=== PATIENT | female | born 1960 | race Caucasian/White ===

== ENCOUNTER 2020-07-16 02:05 | Emergency (ER) | payer MEDICAID ==
[~2020-07-16] VITALS: Ht 157.5 cm; Wt 96.6 kg
[2020-07-16 02:41] VITALS: BP 141/60
[2020-07-16] MEDS ORDERED: PENI500T2 PO (02:51)
[2020-07-16] MEDS ORDERED: HYDR-3972 PO (02:51)
[2020-07-16] MEDS ORDERED: penicillin V potassium 500mg tablet PO ONE (02:55)
[2020-07-16] MEDS ORDERED: HYDROcodone/acetaminophen 10/325mg tab PO ONE (02:55)
== END 2020-07-16 03:56 | disposition home or self-care (01) ==
LOC: ER 02:06
DX: S02.5XXA Fracture of tooth (traumatic), initial encounter for closed fracture (principal); R51.9 Headache, unspecified; K08.89 Other specified disorders of teeth and supporting structures; K04.7 Periapical abscess without sinus; F17.200 Nicotine dependence, unspecified, uncomplicated; Z79.2 Long term (current) use of antibiotics; Z79.899 Other long term (current) drug therapy; X58.XXXA Exposure to other specified factors, initial encounter; Y93.89 Activity, other specified; Y92.89 Other specified places as the place of occurrence of the external cause; Y99.8 Other external cause status
CPT/HCPCS: 99283

== ENCOUNTER 2022-05-09 01:20 | Emergency (ER) | payer MEDICAID ==
[~2022-05-09] VITALS: Ht 157.5 cm; Wt 81.8 kg
[2022-05-09 01:25] VITALS: BP 150/82
== END 2022-05-09 02:49 | disposition home or self-care (01) ==
LOC: ER 01:20
DX: H92.01 Otalgia, right ear (principal)
CPT/HCPCS: 99282

== ENCOUNTER 2022-10-08 18:45 | Emergency (ER) | payer MEDICAID ==
[~2022-10-08] VITALS: Ht 157.5 cm; Wt 90.9 kg
[2022-10-08 19:09] VITALS: TEMP 98
[2022-10-08 20:14] LABS: BILIRUBIN,URINE NEGATIVE (Neg); CLARITY,URINE CLEAR (Clear); COLOR,URINE YELLOW (Yellow); GLUCOSE, URINE NEGATIVE (Neg); KETONES,URINE NEGATIVE (Neg); LEUKOCYTE ESTERASE ,URINE NEGATIVE (Neg); NITRITES, URINE NEGATIVE (Neg); OCCULT BLOOD,URINE NEGATIVE (Neg); PROTEIN,URINE NEGATIVE (Neg); UROBILINOGEN,URINE 0.2 E.U/dL (0.2-1.0)
[2022-10-08 20:53] LABS: UA COLLECTION TYPE CLN CATCH MIDSTREAM
[2022-10-08 21:28] VITALS: BP 125/98; PULSE 72; RESP 18; O2SAT 98
== END 2022-10-08 22:40 | disposition left against medical advice (07) ==
LOC: ER 18:45
DX: R10.9 Unspecified abdominal pain (principal); Z53.21 Procedure and treatment not carried out due to patient leaving prior to being seen by health care provider
CPT/HCPCS: 81003; 99281

== ENCOUNTER 2023-11-20 22:02 | Emergency (ER) | payer MEDICAID ==
[~2023-11-20] VITALS: Ht 157.5 cm; Wt 98.6 kg
[2023-11-20 22:17] VITALS: BP 147/83; TEMP 97.3
[2023-11-21] MEDS: proCHLORperazine 10 MG/2 ml inj IV ONE (03:41)
[2023-11-21] MEDS: acetaminophen 1,000mg/100ml IV 100 ML IV ONE (03:42)
[2023-11-21] MEDS: ketorolac trometh 15mg/ml vial 15 MG/ML ML IV ONE (03:42)
[2023-11-21] MEDS: normal saline 1000ml 1,000 ML IV ONE (03:42)
[2023-11-21 04:50] VITALS: PULSE 87; RESP 16; O2SAT 97
== END 2023-11-21 05:27 | disposition home or self-care (01) ==
LOC: ER 22:03
DX: R51.9 Headache, unspecified (principal); M25.511 Pain in right shoulder; M25.512 Pain in left shoulder; Z88.1 Allergy status to other antibiotic agents
CPT/HCPCS: 96365; 96375; 99284; J0131; J0780; J1885; J7030

== ENCOUNTER → 2024-08-12 | Outpatient (CLI) | payer MEDICARE, MEDICAID ==
--- NOTE | 2024-08-09 18:25 | RADIOLOGY REPORT ---
EXAM: MR MRI LOWER EXTREMITY RIGHT INDICATION: PAIN IN RIGHT ANKLE AND JOINTS OF RIGHT FOOT TECHNIQUE: Multiplanar, multisequence imaging of the right foot without contrast COMPARISON: None FINDINGS: BONES: Diffuse abnormal bone marrow edema of the 1st metatarsal. Only given history is pain and there fore imaging findings may be compatible with stress reaction however correlate with clinical exam to exclude other etiology such as osteomyelitis. No discrete acute fracture plane identified. Apposing s ubchondral bone marrow edema and cystic change of the 2nd, 3rd, 4th tarsometatarsal articulations. Mi ld hallux valgus alignment. MUSCLES: Surrounding muscle edema along the interosseous of the 1st metatarsal TENDONS: Intact. LIGAMENTS: Lisfranc ligamentous complex is grossly intact JOINT SPACES: No joint effusion. NEUROVASCULAR: Normal. OTHER: None. IMPRESSION: 1. Indeterminate abnormal bone marrow edema of the entirety of the 1st metatarsal without discrete fr acture plane. 2. Surrounding myositis. 3. Primary consideration for stress reaction however correlate with physical exam to exclude osteomye litis.
--- NOTE | 2024-08-09 18:28 | RADIOLOGY REPORT ---
EXAM: MR MRI LOWER EXTREMITY RIGHT INDICATION: PAIN IN RIGHT ANKLE AND JOINTS OF RIGHT FOOT TECHNIQUE: Multiplanar and multisequence MR imaging of the left ankle was performed in the absence of gadolinium contrast. COMPARISON: None FINDINGS: [MEDIAL ANKLE]: Intact posterior tibialis, flexor hallucis longus, and flexor digitorum tendons.. Int act deltoid ligament. Intact spring ligament complex. [LOW LATERAL ANKLE]: Intact anterior talofibular, posterior talofibular, and calcaneofibular ligament s. Intact peroneal brevis and longus tendons without tenosynovitis. [HIGH LATERAL ANKLE]: Intact anterior and posterior inferior tibiofibular ligaments. [ANTERIOR ANKLE]: Intact anterior tibialis, extensor digitorum longus, and extensor hallucis longus t endons. [POSTERIOR ANKLE]: No tibiotalar or subtalar joint effusion. Normal sinus Tarsi. Slight thickening of the central cord of the plantar fascia. Small plantar calcaneal spur. Normal Achilles tendon. No re trocalcaneal bursitis. Small subchondral cysts of the critical angle Giss[place]. Small insertional cysts of the distal fibula of the insertion of the posterior talofibular ligament [MIDFOOT]: Midfoot degenerative change with a opposing subchondral cystic change and severe joint spa ce loss. [BONES]: No acute fracture, osseous contusion, or aggressive osseous lesion. [MUSCLES]: Minimal fatty infiltration of the abductor digiti minimi [NEUROVASCULAR]: Normal tarsal tunnel [OTHER]: None IMPRESSION: 1. Slight thickening of the central cord of the plantar fascia. Small plantar calcaneal spur. Correl ate for sequelae of plantar fasciitis 2. Midfoot degenerative change with a opposing subchondral cystic change and severe joint space loss.
[~2024-08-12] MED LIST: PROP10TA10 PO
== END | disposition home or self-care (01) ==
LOC: MRI02 02:46
PROVIDERS: ATTEND Student in an Organized Health Care Education/Training Program
DX: M19.071 Primary osteoarthritis, right ankle and foot (principal); M20.11 Hallux valgus (acquired), right foot; M25.571 Pain in right ankle and joints of right foot; R60.0 Localized edema; M77.31 Calcaneal spur, right foot; M25.871 Other specified joint disorders, right ankle and foot; M72.2 Plantar fascial fibromatosis
CPT/HCPCS: 73718; 73721

== ENCOUNTER 2024-08-13 12:08 | Emergency (ER) | payer MEDICARE, MEDICAID ==
[~2024-08-13] VITALS: Ht 157.5 cm; Wt 81.8 kg
[2024-08-13 12:23] VITALS: TEMP 96.9
--- NOTE | 2024-08-13 12:38 | ELECTROCARDIOGRAPH REPORT ---
[facility] Test Date: 2024-08-13 Test Time: 12:36:21 Pat Name: KATELIN JONAS Department[id number] Room: Gender: F House Officer: : 1960 Requested By: DENNIS CHIN Order Number: [id number] Reading MD: Dr. Dennis Chin Measurements Intervals [place] Rate: 81 P: 52 SC: 178 QRS: 6 QRSD: 80 T: 58 QT: 412 QTc: 479 Interpretive Statements Sinus rhythm Anterior infarct, old Baseline wander in lead(s) III,V5 Electronically Signed On 08-13-2024 13:05:[address] Dennis Chin Please click the below link to view image of tracing.
[2024-08-13 12:47] LABS: MEAN PLATELET VOLUME 9.5 FL (7.4-10.4); RED CELL DISTRIBUTION WIDTH 14.8 % (11.5-14.5)
[2024-08-13 13:03] LABS: CREATININE 0.71 MG/DL (0.40-0.90); TOTAL CARBON DIOXIDE 22.3 MMOL/L (24-32); eCRCL 62 ML/MIN; eGFR 83 ML/MIN
--- NOTE | 2024-08-13 13:06 | RADIOLOGY REPORT ---
EXAM: DI CHEST,SINGLE VIEW Indication: CP Technique: Single frontal view of the chest was obtained Comparison: None FINDINGS: Lines and Tubes: None Lungs: No focal consolidation. Pleura: No effusion. No pneumothorax. Cardiomediastinal contours: Unremarkable Bones: No acute osseous abnormality. IMPRESSION: No acute cardiopulmonary disease.
[2024-08-13 13:10] LABS: PRO BRAIN NATRIURETIC PEPTIDE 197 PG/ML (0-125)
[2024-08-13 17:23] LABS: LEUKOCYTE ESTERASE ,URINE TRACE (Neg); NITRITES, URINE NEGATIVE (Neg); OCCULT BLOOD,URINE NEGATIVE (Neg)
[2024-08-13 17:35] LABS: UA COLLECTION TYPE NON-SPECIFIED
[2024-08-13 17:37] LABS: SQUAMOUS EPITHELIAL CELL,UR MODERATE /LPF (FEW)
[2024-08-13 17:39] LABS: MUCUS STRANDS FEW /LPF (Neg); RENAL CELLS, URINE FEW /HPF
--- NOTE | 2024-08-13 17:53 | Physician Documentation ---
History of Present Illness ~ Chief Complaint: Hypertension Stated Complaint: HIGH BLOOD PRESSURE Time Seen by MD: 17:00 Primary Medical Doctor: RACHID CARRILLO Mode of Arrival: Ambulatory HPI 64-year-old female who denies any history of hypertension presents with an intermittent headaches usually starting in the morning over the last week. States she does smoke cigarettes occasionally adds that she has felt short of breath over the last six months. She does not report having a primary care provider. Medication Reconciliation Allergies: Coded Allergies: tetracycline (Verified Allergy, Severe, DIARRHEA, 11/20/23) Scheduled Propranolol Hcl* (Inderal*), 1 TAB PO Q12H Past Medical History Past Medical History: No Pertinent History Past Surgical History: no surgical history Alcohol Use: None Drug Use: none Lives with: Family Lives In: Home Review of Systems All Other Systems at this time: Reviewed and Negative ROS As stated above in the HPI, otherwise all systems are reviewed and negative. Physical Exam Vital Signs: Temperature: 96.9, Source: Temporal, Heart Rate: 69, Respiratory Rate: 16, BP: 146/89, Pulse Oximetry: 99, Weight: 81.820 Oxygen Flow Rate: 0 Physical Exam General: Alert, no apparent distress. Respiratory: Lungs clear, no respiratory distress. Cardiovascular: Regular rate and rhythm, no murmurs. Gastrointestinal: Soft, nontender, nondistended. Bowels sounds present. Neurologic: Oriented x4. Psychiatric: Normal mood and affect. Skin: Normal color, warm and dry. No edema, no ecchymosis. Progress Results/Orders Results/Orders Orders - ODELL LEA TOOL ROOM SUPERVISOR Cult Urine + [address] (08/13/24 17:36) Completed Orders - ODELL LEA TOOL ROOM SUPERVISOR Ua W/Microscopic, Cult If Ind (08/13/24 14:46) Ketorolac Trometh 30mg/Ml Vial (Toradol (08/13/24 18:00) Propanolol Tablet (Inderal Tablet) (08/13/24 18:00) Medications Received in ER Medications (Trade) Dose Ordered Sig/Vazquez Route PRN Reason Start Time Stop Time Status Last Admin Dose Admin (Toradol inj. 30mg/ml) 30 mg ONCE ONCE IM 08/13/24 18:00 08/13/24 18:01 DC 08/13/24 18:07 30 MG (Inderal tablet) 20 mg ONCE ONCE PO 08/13/24 18:00 08/13/24 18:01 DC 08/13/24 18:07 20 MG Vital Signs 08/13/24 08/13/24 08/13/24 08/13/24 12:23 16:19 16:57 18:07 Temp 96.9 Pulse 88 70 69 69 Resp 18 18 16 16 B/P (MAP) 166/81 160/83 (108) 146/89 (108) 165/80 (108) Pulse Ox 99 100 99 97 O2 Flow Rate 0 0 0 0 08/13/24 18:07 Resp 16 Laboratory Tests Test 08/13/24 12:36 08/13/24 14:46 08/13/24 15:18 White Blood Count 6.4 Red Blood Count 5.24 Hemoglobin 14.6 Hematocrit 44.1 Mean Corpuscular Volume 84.2 Mean Corpuscular Hemoglobin 28.0 Mean Corpuscular Hemoglobin Concent 33.2 Red Cell Distribution Width 14.8 H Platelet Count 370 Mean Platelet Volume 9.5 Neutrophils (%) (Auto) 65.3 Lymphocytes (%) (Auto) 24.3 Monocytes (%) (Auto) 7.1 Eosinophils (%) (Auto) 2.1 Basophils (%) (Auto) 1.2 H Neutrophils # (Auto) 4.2 Lymphocytes # (Auto) 1.6 Monocytes # (Auto) 0.5 Eosinophils # (Auto) 0.1 Basophils # (Auto) 0.1 CBC Comment Sodium Level 140 Potassium Level 4.0 Chloride Level 106 Carbon Dioxide Level 22.3 L Anion Gap 12 Blood Urea Nitrogen 11 Creatinine 0.71 Estimated GFR/1.73 m2 83 BUN/Creatinine Ratio 15.5 Glucose Level 105 H Calcium Level 9.3 Total Bilirubin 0.4 Aspartate Amino Transf (AST/SGOT) 21 Alanine Aminotransferase (ALT/SGPT) 27 Alkaline Phosphatase 87 Troponin I High Sensitivity 7 7 Pro-B-Type Natriuretic Peptide 197 H Total Protein 7.8 Albumin 3.8 Globulin 4.0 Albumin/Globulin Ratio 1.0 L Chemistry Comments Urine Specimen Description Non-specified Urine Color Yellow Urine Clarity Slightly cloudy Urine pH 6.0 Urine Specific [place] 1.020 Urine Protein Negative Urine Glucose (UA) Negative Urine Ketones Negative Urine Occult Blood Negative Urine Nitrite Negative Urine Bilirubin Negative Urine Urobilinogen 0.2 Urine Leukocyte Esterase Trace H Urine RBC 0-2 Urine WBC 5-10 H Urine Squamous Epithelial Cells Moderate Urine Transitional Epithelial Cells Moderate Urine Renal Cells Few Urine Bacteria 1+ Urine Mucus Few Urine Culture Indicated Indicated Volume Urine Centrifuged 10 ml Urine Comment Troponin I High Sens Percent Delta 0 Troponin I Hi Sens Absolute Change 0 Microbiology Date/Time Source Procedure Growth Status 08/13/24 17:36 Urine Nonspecified Urine Culture - Preliminary Culture received. Resulted Departure Disposition: HOME / SELF CARE / HOMELESS Impression: Primary Impression: Benign hypertension Additional Impression: Headache Condition: Stable Discharge Instructions: Chronic Migraine Headache, [id number], Hypertension, Adult, [id number] Additional Instructions: You were evaluated for hypertension and headache today. You do not present with any concerns in of the cardiac nature at this time. Did treat you for your headache and benign hypertension. Recommend following up with your primary care for further evaluation if your blood pressure continues to be elevated Referrals: NO PRIMARY CARE PROVIDER (PCP) Prescriptions Propranolol Hcl* (Inderal*) 10 Mg Tablet 1 TAB PO Q12H for 30 Days, #60 TAB Prov: ODELL LEA TOOL ROOM SUPERVISOR 08/13/24 Signature Scribe Signature: h Attestation: Scribed for Odell Lea Lorry Weigher by Odell Vela NP . 08/13/24 21:01 ODELL LEA NP Aug 13, 2024 17:53
[2024-08-13] MEDS ORDERED: PROP10TA10 PO (18:02)
[2024-08-13 18:07] VITALS: BP 165/80; PULSE 69; RESP 16; O2SAT 97
[2024-08-13] MEDS: propranolol 10mg tablet PO ONE (18:07)
[2024-08-13] MEDS: ketorolac trometh 30MG/ML vial 30 MG/ML VIAL IM ONE (18:07)
== END 2024-08-13 18:29 | disposition home or self-care (01) ==
LOC: ER 12:09
DX: I10 Essential (primary) hypertension (principal); R51.9 Headache, unspecified; F17.210 Nicotine dependence, cigarettes, uncomplicated; I25.2 Old myocardial infarction; Z88.1 Allergy status to other antibiotic agents; Z79.899 Other long term (current) drug therapy
CPT/HCPCS: 36415; 71045; 80053; 81001; 83880; 84484; 85025; 87088; 93005; 96372; 99285; J1885

== ENCOUNTER 2024-08-14 09:22 | Outpatient (CLI) | payer MEDICARE, MEDICAID ==
[2024-08-14 10:07] LABS: MEAN PLATELET VOLUME 9.7 FL (7.4-10.4); RED CELL DISTRIBUTION WIDTH 14.7 % (11.5-14.5)
[2024-08-14 10:31] LABS: CREATININE 0.83 MG/DL (0.40-0.90); TOTAL CARBON DIOXIDE 22.2 MMOL/L (24-32); eGFR 69 ML/MIN
[2024-08-14 11:29] LABS: HIV ANTIBODY 1&2 RAPID NON-REACTIVE (Neg)
--- NOTE | 2024-08-14 12:12 | RADIOLOGY REPORT ---
EXAM: DI ANKLE, COMPLETE(3VW MIN), DI FOOT, COMPLETE (3VW MIN) CLINICAL INDICATION: PAIN IN JOINT RIGHT ANKLE AND FOOT TECHNIQUE: DI ANKLE, COMPLETE(3VW MIN), DI FOOT, COMPLETE (3VW MIN) Comparison: None FINDINGS/IMPRESSION: There is no evidence of acute fracture or dislocation. The visualized joint space is well maintained. The alignment is anatomical. There is no radiopaque foreign body.
[2024-08-14 15:33] LABS: PHOSPHORUS 4.2 MG/DL (2.3-4.5)
[2024-08-15 19:08] LABS: HEPATITIS C VIRUS ANTIBODY Non Reactive (Non Reactive)
== END 2024-08-14 23:59 | disposition home or self-care (01) ==
LOC: RAD 09:22
PROVIDERS: ATTEND Student in an Organized Health Care Education/Training Program
DX: M25.571 Pain in right ankle and joints of right foot (principal); Z79.899 Other long term (current) drug therapy
CPT/HCPCS: 36415; 73610; 73630; 80053; 80069; 80074; 83036; 84439; 84443; 85025; 86592; 86703; 87491